=== PATIENT | male | born 1975 | race Caucasian/White ===

== ENCOUNTER 2018-10-30 12:04 | Emergency (ER) | payer SELFPAY ==
--- NOTE | 2018-10-30 12:45 | NUR ---
NO ANSWER IN ER LOBBY
--- NOTE | 2018-10-30 13:05 | NUR ---
NO ANSWER IN ER LOBBY
== END 2018-10-30 12:45 | disposition left against medical advice (07) ==
LOC: MED 12:04
DX: Z53.21 Procedure and treatment not carried out due to patient leaving prior to being seen by health care provider (principal)

== ENCOUNTER 2019-11-11 17:04 | Emergency (ER) | payer OTHER, SELFPAY ==
[~2019-11-11] VITALS: Ht 177.8 cm; Wt 86.2 kg
[2019-11-11 17:06] VITALS: BP 129/96
--- NOTE | 2019-11-11 17:10 | NUR ---
C/O FEVER X 2 DAYS , CROCKER 5/10X 3 DAYS , DIARRHEA X 4 DAYS. PT TOOK TYLENOL 2 HOURS AGO. MOTHER IN LAW HAD COVID TESTED +. MED HX: DENIES
--- NOTE | 2019-11-11 17:35 | NUR ---
COVID SWAB DONE.
[2019-11-11 18:03] VITALS: BP 129/96
--- NOTE | 2019-11-11 18:03 | NUR ---
Patient discharged with v/s stable. Written and verbal after care instructions given and explained. Patient verbalized understanding. Ambulatory with steady gait. All questions addressed prior to discharge. Advised to follow up with PMD.
== END 2019-11-11 18:03 | disposition home or self-care (01) ==
LOC: EEVIPCON 17:04 → MED 17:04
DX: R50.9 Fever, unspecified (principal); R51 Headache; R19.7 Diarrhea, unspecified; Z20.828 Contact with and (suspected) exposure to other viral communicable diseases; R03.0 Elevated blood-pressure reading, without diagnosis of hypertension
CPT/HCPCS: 99283; U0003

== ENCOUNTER 2021-02-28 01:25 | Emergency (ER) | payer OTHER, SELFPAY ==
[~2021-02-28] VITALS: Ht 177.8 cm; Wt 88.5 kg
[2021-02-28 01:35] VITALS: BP 132/71
--- NOTE | 2021-02-28 01:36 | NUR ---
PT AMBULATED TO BED 02.
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
[2021-02-28] MEDS ORDERED: NACL 0.9% 1,000 ML IV ONE (01:50)
[2021-02-28] MEDS ORDERED: ACETAMINOPHEN EXTRA STRENGTH 500 MG TAB PO ONE (01:50)
[2021-02-28] MEDS ORDERED: KETOROLAC 30 MG/ML VIAL IVP ONE (01:50)
[2021-02-28] MEDS ORDERED: ONDANSETRON 4 MG/2 ML VIAL IVP ONE (01:50)
[2021-02-28 02:03] LABS: BASOPHILS % (AUTO) 0.2 % (0.0-2.0); HEMATOCRIT 44.4 % (36-52); HEMOGLOBIN 15.7 g/dL (12.0-18.0); LYMPHOCYTES # (AUTO) 1.1 K/uL (2.0-11.5); LYMPHOCYTES % (AUTO) 8.9 % (20.5-51.1); MEAN CORPUSCULAR HEMOGLOBIN 32 pg (27-31); MEAN CORPUSCULAR HGB CONC 35 g/dL (33-37); MEAN CORPUSCULAR VOLUME 89.1 fL (80-94); MONOCYTES # (AUTO) 0.8 K/uL (0.8-1.0); MONOCYTES % (AUTO) 6.2 % (1.7-9.3); NEUTROPHILS # (AUTO) 10.6 K/uL (1.8-7.7); NEUTROPHILS % (AUTO) 84.7 % (42.2-75.2); PLATELET COUNT (AUTO) 190 K/uL (140-450); RED BLOOD CELL COUNT(AUTO) 4.99 MIL/uL (4.20-6.10); RED CELL DISTRIBUTION WIDTH 12.6 % (11.6-13.7); WHITE BLOOD COUNT (AUTO) 12.5 K/uL (4.8-10.8)
[2021-02-28 02:17] LABS: ALBUMIN 3.9 g/dL (3.4-5.0); ANION GAP 13.7 (8-16); CARBON DIOXIDE 26.1 mmol/L (21-32); CREATININE 1.3 mg/dL (0.6-1.3); POTASSIUM 3.8 mmol/L (3.5-5.1)
[2021-02-28 03:00] VITALS: BP 128/74
--- NOTE | 2021-02-28 03:00 | NUR ---
RESTING COMFORTABLY, VOICES NO COMPLAINTS
[2021-02-28] MEDS ORDERED: ONDA-188 SL (03:06)
== END 2021-02-28 03:16 | disposition home or self-care (01) ==
LOC: MED 01:25
DX: B34.9 Viral infection, unspecified (principal); Z20.822 Contact with and (suspected) exposure to COVID-19
CPT/HCPCS: 36415; 71045; 80053; 84484; 85025; 87426; 87804; 93005; 96361; 96374; 96375; 99285; J1885; J2405; J7030; Q0092